=== PATIENT | female | born 1995 | race Caucasian/White ===

== ENCOUNTER 2024-12-03 00:36 | Emergency (ER) | payer OTHER, SELFPAY ==
[2024-12-03 00:46] VITALS: BP 151/95
[2024-12-03 02:42] VITALS: BP 145/87
--- NOTE | 2024-12-03 03:58 | ED.GENMED ---
History of Present Illness
General
Chief Complaint: DVT/Possible Blood Clot
Source: patient
Exam Limitations: none
Time Seen by Provider: 12/03/24 03:30
Nursing documentation reviewed up to this point in time: agreed with
History of Present Illness
History of Present Illness:
Note:
CHIEF COMPLAINT(S)
Right calf pain.
HISTORY OF PRESENT ILLNESS
The patient is a 29-year-old female who reports experiencing sudden onset pain in the right calf that began yesterday morning, with no identified precipitating injury. She describes the pain as 'really weird' and notably not associated with any
obvious trauma. She recently engaged in incline walking during a workout session the previous Friday. The patient denies any knee or ankle pain and states the pain is not exacerbated by palpation in other areas of the leg. There is no history of
recent travel, prolonged immobility, or similar symptoms. Her concern arose due to her mother recently having a blood clot and encouraging her to seek medical evaluation.
SOCIAL HISTORY
The patient denies smoking.
MEDICATIONS
The patient reports taking Dithromax, mycine antibiotics, but is not on any control pills.
REVIEW OF SYSTEMS
- Musculoskeletal: Reports right calf pain; denies knee or ankle pain.
PHYSICAL EXAM
General: Alert, no acute distress.
Skin: Warm, dry.
Head: Normocephalic, atraumatic.
Neck: Supple, trachea midline.
Eyes, Ears, Nose, and Mouth: Oral mucosa moist.
Cardiovascular: Normal peripheral perfusion, no edema.
Respiratory: Respirations are non-labored.
Back: Normal range of motion, normal alignment.
Musculoskeletal: Normal range of motion, normal strength, localized right calf pain without associated knee or ankle pain.
Neurological: Alert and oriented to person, place, time, and situation, no focal neurological deficit observed.
Psychiatric: Cooperative, appropriate mood and affect.
PLAN
- Advise the patient to take it easy for a day or two.
- Recommend [id number] pain relief (e.g., ibuprofen or acetaminophen).
- Observe for any changes in symptoms or new developments.
DIFFERENTIAL DIAGNOSIS
The Differential Diagnosis includes, in no particular order and is not limited to:
- Muscle strain or sprain
- Deep vein thrombosis
- Tendinitis
- Peripheral artery disease
- Compartment syndrome
- Muscle cramp
- Gastrocnemius tear
- Myositis
- Bakers cyst
- Nerve compression
Disposition:
SUMMARY OF ENCOUNTER
A 29-year-old female presented with left calf pain after a gym session, concerned about deep vein thrombosis (DVT) due to a family history of blood clots. An ultrasound was performed and returned negative for DVT. The patient denied knee or ankle
pain and was assessed as very low risk for a blood clot, leading to a diagnosis of musculoskeletal pain.
DISPOSITION
Discharge to home.
ASSESSMENT
Musculoskeletal pain.
INDEPENDENT REVIEW OF LABS AND INTERPRETATION OF TESTS
My independent review of the ultrasound indicates no evidence of DVT.
PATIENT EDUCATION AND COUNSELING
The patient was educated on the current diagnosis of musculoskeletal pain and advised on measures to alleviate discomfort.
FOLLOW-UP INSTRUCTIONS
The patient was instructed to return to the emergency room if symptoms worsen or new symptoms develop.
MEDICAL DECISION MAKING
-Complexity of Data Reviewed: DDx includes muscle strain or sprain, deep vein thrombosis, tendinitis, peripheral artery disease, compartment syndrome, muscle cramp, gastrocnemius tear, myositis, Bakers cyst, and nerve compression.
-Data:
Category 1:
- My independent interpretation of the ultrasound was negative for DVT.
-Risk:
Prescription medication was considered, but ultimately not given after discussion with the patient due to the low-risk nature of pain.
Past History
Past History
ED Past Medical History: Psychiatric (anxiety, bipolar disorder) and Other (Renal calculus)
ED Past Surgical History: None
Social History
Tobacco: Non-smoker
Alcohol: Occasional
Drug: Narcotics and IVDA
Personal: Single
Living: with family
Employment: Not employed
Family History
Family History: Other (Noncontributory)
Phy Exam
Physical Exam
Physical Exam:
.
General Physical Exam
General Presentation: well appearing and no apparent distress
General age: appears stated age
General Skin: warm and dry
General Habitus: normal
General Mental: alert
General Hydration: appears well hydrated
Musculoskeletal Exam
Musculoskeletal Exam: full ROM, no edema and neuro vasc intact
Course
Orders/Labs/Results
Orders:
Orders
12/03/24 00:53
US Legs, Left [US Periph Venous LOWER Ext LT] Urgent
Comment:
Reason For Exam: left calf pain
Vital Signs
Initial and Last Documented VS:
Initial Vital Signs
Temp Pulse Resp BP Pulse Ox
98.3 F 89 16 151/95 100
12/03/24 00:46 12/03/24 00:46 12/03/24 00:46 12/03/24 00:46 12/03/24 00:46
Last Documented Vital Signs
Temp Pulse Resp BP Pulse Ox
98.3 F 72 16 140/91 99
12/03/24 00:46 12/03/24 04:11 12/03/24 04:11 12/03/24 04:11 12/03/24 04:11
*Radiology
Radiology exam reviewed: radiology read reviewed
*Pulse Oximetry
SaO2: 100
Oxygen Mode of Delivery: Room air
Patient hypoxic: no
*Critical Care Note
Total Time (30-74mins, 75-104mins- exclusive of procedures): Not Applicable
Update Note
Update Note:
NAME: NOHELIA ECHEVERRIA
DATE OF EXAM: 12/03/2024
Patient No: [id number]
Physician: GEMA
Date of : 1995
Past Medical History (entered by Technologist):
Reason For Exam (entered by Technologist):
Other Notes (entered by Technologist):
Additional Information (per [facility] Radiologist): Leg pain
LEFT LOWER EXTREMITY DUPLEX ULTRASOUND:
IMPRESSION
No evidence of deep venous thrombosis. Normal compression, augmentation, and blood flow.
Case faxed/finalized at 2:55 AM eastern time . If there are any questions please contact me at [phone].
Jen Potts M.D.
This report has been electronically signed and verified by the Radiologist whose name is printed above.
ED Attending Note
-
Portions of this chart may have been created with voice recognition software.� Occasional wrong word or��sound alike� substitutions may have occurred due to the inherent limitations of voice recognition software.
Discharge Plan
Departure
Patient Disposition: Home (Routine Discharge)
Date of Disposition: 12/03/24
Time of Disposition: 04:35
Patient with high blood pressure during this ER visit?: Yes
Condition: Good
Discharge Problem:
Pain of left calf
Instructions: Achilles Tendinopathy Exercises, BLOOD PRESSURE, Musculoskeletal Pain
Prescriptions:
No Action
methadone [Methadose] 100 MG/10 ML concentrate
100 mg PO DAILY
melatonin 5 MG tablet
5 mg PO HS
Latuda 40 MG tablet
80 mg PO DAILY
Gabarone 300 MG tablet
300 mg PO DAILY
sulfamethoxazole-trimethoprim [Bactrim DS] 800-160 mg tablet
1 tab PO BID Qty: 13 0RF
Referrals:
Satish Cheung MD [Family Provider, Family Practice]
Activity Restrictions/Additional Instructions:
Thank You for choosing [facility].
It was a pleasure meeting you and taking part in your care. We hope for your continued healing and wellness.
Please read discharge instructions in their entirety. However, they are for general education and may not describe your exact diagnosis at discharge. Information on your ER visit and medical conditions were discussed with you along with appropriate
follow up information...
If indicated, please take your medications as instructed and indicated on discharge paperwork.
Please schedule a follow up appointment as directed. Call to schedule an appointment
Please return to the emergency department with ANY change in, persisting, or worsening of symptoms. If any of your symptoms do not improve, or persist, or become more severe within 6-12 hours, please return to the emergency department for further
care.
Please return to the emergency department if you develop a headache, neck pain/stiffness, fever greater than 100.4F, chest pain, shortness of breath, persistent nausea, vomiting, slurred speech, difficulty walking, numbness/tingling, weakness, signs
of infection or any other symptoms that are worrisome to you.
If you have any questions or concerns please do not hesitate to call the Hospital at or E-mail me directly at [email or web address]
Interventions
Interventions:
*Risk Screen - Suicide Last Done: 12/03/24 00:46
*General Assessment Last Done: 12/03/24 00:46
*Neglect/Abuse Screening Last Done: 12/03/24 00:46
*ED- Fall Risk Assessment Last Done: 12/03/24 00:46
ED- Cardiac Assessment Last Done: 12/03/24 02:41
ED- Pulmonary Assessment Last Done: 12/03/24 02:41
ED-Peripheral Vascular Assessment Last Done: 12/03/24 02:38
ED-Skin Assessment Last Done: 12/03/24 02:41
Discharge Date and Time
Print Language: VIET[place]
[2024-12-03 04:11] VITALS: BP 140/91
[2024-12-03 04:42] VITALS: BP 140/90
== END 2024-12-03 04:43 | disposition home or self-care (01) ==
LOC: EMR 00:36
PROVIDERS: EMERGENCY PHYSICIAN Student in an Organized Health Care Education/Training Program; FAMILY PHYSICIAN Family Medicine
DX: M79.662 Pain in left lower leg (principal); R03.0 Elevated blood-pressure reading, without diagnosis of hypertension
CPT/HCPCS: 99284; 93971